=== PATIENT | male | born 1955 | race Caucasian/White ===

== ENCOUNTER 2024-07-06 06:20 | Day surgery (SDC) | payer MEDICARE, SELFPAY | END 2024-07-06 15:39 | disposition home or self-care (01) | LOC: GI 06:20 | PROVIDERS: ATTENDING PHYSICIAN Internal Medicine | DX: Z12.11 Encounter for screening for malignant neoplasm of colon (principal); K64.8 Other hemorrhoids; K57.30 Diverticulosis of large intestine without perforation or abscess without bleeding; D12.4 Benign neoplasm of descending colon; K63.5 Polyp of colon | CPT/HCPCS: 45385; 45380; 88305 ==